=== PATIENT | male | born 1940 | race Caucasian/White ===

== ENCOUNTER → 2016-12-30 | Outpatient (CLI) | payer OTHER ==
[2016-12-30 16:36] LABS: BASO % 0.2 %; BASO ABS # 0.01 K/uL (0-0.2); COMPLETE YES; EOS % 1.6 %; HEMATOCRIT 45.1 % (42-52); IG% 0.6 %; LYMPH % 24.2 %; LYMPH ABS # 1.54 K/uL (1.2-3.4); MEAN CORPUSCULAR HGB CONC 33.7 g/dl (32-36); MEAN PLATELET VOLUME 9.3 fL (7.4-10.4); MONO % 7.2 %; NEUT % 66.2 %; PLATELET COUNT 270 K/uL (130-400); WHITE BLOOD COUNT 6.36 K/uL (4.8-10.8)
[2016-12-30 16:41] LABS: URINE APPEARANCE CLEAR (CLEAR); URINE BILIRUBIN NEG (NEG); URINE COLOR YELLOW; URINE EPITHELIAL CELL AUTO 0-5 /lpf (0-5); URINE NITRITE NEG (NEG); URINE SPECIFIC GRAVITY 1.015 (1.000-1.030); UROBILINOGEN NEG (NEG); ZZUR CULT IF INDIC CLEAN CATCH NO
[2016-12-30 16:45] LABS: MANUAL MICROSCOPIC REQUIRED? NO; REVIEW REQ? NO
[2016-12-30 16:48] LABS: ALT/SGPT 26 U/L (12-78); AST/SGOT 18 U/L (15-37); BLOOD UREA NITROGEN 16 mg/dl (7-18); BUN/CREATININE RATIO 17.7 (10-20); CALCIUM 8.7 mg/dl (8.5-10.1); CARBON DIOXIDE 27 mmol/L (21-32); CHLORIDE 107 mmol/L (98-107); CHOLESTEROL 247 mg/dl (0-200); CREATININE 0.93 mg/dl (0.60-1.40); GLUCOSE 86 mg/dl (70-99); POTASSIUM 3.8 mmol/L (3.5-5.1); SODIUM 143 mmol/L (136-145)
[2016-12-30 17:01] LABS: ALB/GLOB RATIO 1.2 (0.9-2); ALKALINE PHOSPHATASE 54 U/L (45-117); CHOLESTEROL/HDL RATIO 3.7; HDL CHOLESTEROL 67 mg/dl; LDL CHOLESTEROL CALCULATED 158 mg/dl; THYROID STIMULATING HORMONE 0.384 uIu/ml (0.300-4.500); TRIGLYCERIDES 112 mg/dl (0-150); VERY LOW DENSITY LIPOPROT CALC 22 mg/dl
== END | disposition home or self-care (01) ==
LOC: C.LABBFT 12:36
PROVIDERS: ATTEND Internal Medicine
DX: R97.20 Elevated prostate specific antigen [PSA] (principal); E78.5 Hyperlipidemia, unspecified

== ENCOUNTER → 2017-01-12 | Outpatient (CLI) | payer OTHER ==
[2017-01-12 17:46] LABS: BLOOD UREA NITROGEN 16 mg/dl (7-18); CALCIUM 8.9 mg/dl (8.5-10.1); CARBON DIOXIDE 28 mmol/L (21-32); CHLORIDE 108 mmol/L (98-107); GLUCOSE 93 mg/dl (70-99); POTASSIUM 3.9 mmol/L (3.5-5.1); SODIUM 143 mmol/L (136-145)
== END | disposition home or self-care (01) ==
LOC: C.LABBFT 15:20
PROVIDERS: ATTEND Physician Assistant Medical
DX: E78.5 Hyperlipidemia, unspecified (principal); I10 Essential (primary) hypertension

== ENCOUNTER → 2017-02-08 | Outpatient (CLI) | payer OTHER ==
--- NOTE | 2017-02-08 11:42 | DIAGNOSTIC IMAGING REPORT ---
RIGHT INGUINAL ULTRASOUND CLINICAL HISTORY: Right ankle soft tissue mass COMPARISON STUDY: No previous studies for comparison. FINDINGS: There is a large reducible right inguinal hernia which contains both fat and bowel. IMPRESSION: Large reducible fat and bowel containing right inguinal hernia. Electronically signed by: Ramos Ayon M.D. 02/08/2017 11:41 AM Dictated Date/Time: 02/08/2017 11:40 AM
== END | disposition home or self-care (01) ==
LOC: C.ULTR 11:16
PROVIDERS: ATTEND Physician Assistant Medical
DX: K40.90 Unilateral inguinal hernia, without obstruction or gangrene, not specified as recurrent (principal)

== ENCOUNTER 2018-05-08 21:00 | Emergency (ER) | payer OTHER ==
[~2018-05-08] VITALS: Ht 170.2 cm; Wt 67.1 kg
[2018-05-08 21:10] VITALS: TEMP 36.7; Ht 170.2 cm; Wt 67.1 kg
[2018-05-08 21:25] VITALS: O2SAT 94
--- NOTE | 2018-05-08 22:02 | EMERGENCY ROOM VISIT NOTE ---
History Report prepared by Shannon: Nancy Rai Under the Supervision of: Dr. Dash Harden M.D. First contact with patient: 21:21 Chief Complaint: CHEST INJURY Stated Complaint: CHEST PAIN, HIT IN CHEST WHILE WORKING History of Present Illness The patient is a 77 year old male who presents to the Emergency Room with complaints of constant, worsening chest pain beginning 6 days ago. He notes the pain is worsened by breathing and movement. 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 He states he fell to the ground and was unable to get to his feet for a few moments. He cyndi any LOC. The patient notes his pain has been worsening since that incident 6 days ago. 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 The patient denies any SOB, abdominal pain, or back pain. He notes he took 1 Advil yesterday , and 2 today, to no effect. The patient denies any blood thinner use. He notes a history of multiple broken ribs and other bones. Source of History: patient Onset: 6 days ago Position: chest Timing: constant, worsening Modifying Factors (Worsening): breathing, movement Modifying Factors (Relieving): other (not relieved by Advil) Associated Symptoms: No SOB, No abdominal pain, No back pain Review of Systems See HPI for pertinent positives and negatives. A total of ten systems were reviewed and were otherwise negative. Past Medical & Surgical Medical Problems: (1) High cholesterol (2) HTN (hypertension) Family History No pertinent family history stated. Social History Smoking Status: Former Smoker Smokeless Tobacco Use: No Marital Status: Occupation Status: retired Current/Historical Medications Scheduled Atorvastatin (Lipitor), 10 MG PO DAILY Fish Oil ([place]-3), 1 CAP PO DAILY Losartan Potassium (Cozaar), 25 MG PO DAILY Misc Natural Products (Urinozinc), 1 CAP PO DAILY Scheduled PRN Ibuprofen Tab (Advil), 400 MG PO UD PRN for Pain or Fever Allergies Coded Allergies: No Known Allergies (Unverified , 05/08/18) Physical Exam Vital Signs Date Time Temp Pulse Resp B/P (MAP) Pulse Ox O2 Delivery O2 Flow Rate FiO2 05/08/18 23:12 72 05/08/18 22:34 82 20 177/97 96 Room Air 05/08/18 21:25 94 05/08/18 21:10 36.7 87 20 187/92 94 Room Air Physical Exam GENERAL: Awake, alert, well-appearing, in no distress HENT: Normocephalic, atraumatic. Oropharynx unremarkable. EYES: Normal conjunctiva. Sclera non-icteric. NECK: Supple. No nuchal rigidity. RESPIRATORY: Clear to auscultation. No wheezes. Normal respiratory effort. CARDIAC: Normal rate. Normal rhythm. Extremities warm and well perfused. GI: Soft, non-distended. No tenderness to palpation. No rebound or guarding. RECTAL: Deferred. MUSCULOSKELETAL: Atraumatic. Chest examination reveals central sternal chest tenderness to palpation without contusion or crepitus. LOWER EXTREMITIES: Calves are equal size bilaterally and non-tender. No edema NEURO: Normal sensorium. No sensory or motor deficits noted. No facial droop. SKIN: Warm and dry. No rash or jaundice noted. Medical Decision & Procedures ER Provider Diagnostic Interpretation: Radiology results as stated below per my review and radiologist interpretation: (CHEST) THORAX WITHOUT CT DOSE: 239.91 mGy.cm CLINICAL HISTORY: 77 years-old Male with chest pain, struck in chest 6 days ago, sternum. Acute midsternal chest pain with recent chest trauma TECHNIQUE: Multiaxial CT images of the chest were performed without contrast. A dose lowering technique was utilized adhering to the principles of ALARA. COMPARISON: None. FINDINGS: Thyroid appears enlarged without focal nodule identified. Mild multichamber cardiac enlargement with coronary arterial calcifications. Calcifications of the aortic annulus are also present. Mild calcification of the thoracic aorta without aneurysm identified. Tortuosity of the descending thoracic aorta. Unopacified pulmonary artery is unremarkable. Calcified lower right hilar lymph nodes. No pathologically enlarged lymph nodes by CT size criteria. Moderate left hemidiaphragm elevation. Subsegmental groundglass and consolidative opacities of the lung bases, left greater than right suggest atelectasis/scarring. Calcified granulomata about the medial basal segment right lower lobe. No suspicious pulmonary nodules identified. No pneumothorax or pleural effusion. The central airways appear to be patent. Calcified granulomata about the spleen. Soft tissue attenuating 2.2 x 1.6 cm exophytic lesion of the superior pole left kidney demonstrates mild peripheral calcification along its superior margin. Mild nonspecific left perinephric stranding. Colonic diverticulosis. Hypodense lesions of the liver measuring up to 8.0 cm suggest hepatic cysts. Soft tissues are unremarkable. Subacute to chronic appearing fracture of the posterior left 10th rib. There is mild increased sclerosis about the anterior left fourth rib, image 126 series 4 without discrete fracture line identified. Healed fracture of the lateral left ninth rib. Multilevel spondylitic spurring of the spine. There is mild cortical regularity about the mid sternum seen best on the sagittal images suggesting acute nondisplaced sternal fracture with minimal presternal soft tissue stranding. IMPRESSION: 1. Mild cortical irregularity about the mid sternal body seen best on the coronal reformatted images suggests acute nondisplaced fracture. Minimal associated soft tissue swelling. 2. Subacute to chronic appearing fracture of the left posterior 10th rib. 3. No acute intrathoracic abnormality identified. No pneumothorax. 4. Cardiomegaly. 5. Prior granulomatous disease. 6. Moderate left hemidiaphragmatic elevation with subsegmental bibasilar atelectasis/scarring. 7. Additional findings as above. Electronically signed by: Patrick Gordon M.D. 05/08/2018 10:15 PM Dictated Date/Time: 05/08/2018 10:05 PM Laboratory Results 05/08/18 22:43 Red Blood Count 4.71, Mean Corpuscular Volume 93.2, Mean Corpuscular Hemoglobin 32.1, Mean Corpuscular Hemoglobin Concent 34.4, Mean Platelet Volume 9.0, Neutrophils (%) (Auto) 67.7, Lymphocytes (%) (Auto) 16.8, Monocytes (%) (Auto) 11.9, Eosinophils (%) (Auto) 2.6, Basophils (%) (Auto) 0.4, Neutrophils # (Auto ) 4.73, Lymphocytes # (Auto) 1.17, Monocytes # (Auto) 0.83, Eosinophils # (Auto ) 0.18, Basophils # (Auto) 0.03 05/08/18 22:43 Test 05/08/18 22:43 White Blood Count 6.98 K/uL (4.8-10.8) Red Blood Count 4.71 M/uL (4.7-6.1) Hemoglobin 15.1 g/dL (14.0-18.0) Hematocrit 43.9 % (42-52) Mean Corpuscular Volume 93.2 fL (80-100) Mean Corpuscular Hemoglobin 32.1 pg (25-34) Mean Corpuscular Hemoglobin Concent 34.4 g/dl (32-36) Platelet Count 219 K/uL (130-400) Mean Platelet Volume 9.0 fL (7.4-10.4) Neutrophils (%) (Auto) 67.7 % Lymphocytes (%) (Auto) 16.8 % Monocytes (%) (Auto) 11.9 % Eosinophils (%) (Auto) 2.6 % Basophils (%) (Auto) 0.4 % Neutrophils # (Auto) 4.73 K/uL (1.4-6.5) Lymphocytes # (Auto) 1.17 K/uL (1.2-3.4) Monocytes # (Auto) 0.83 K/uL (0.11-0.59) Eosinophils # (Auto) 0.18 K/uL (0-0.5) Basophils # (Auto) 0.03 K/uL (0-0.2) RDW Standard Deviation 45.7 fL (36.4-46.3) RDW Coefficient of Variation 13.3 % (11.5-14.5) Immature Granulocyte % (Auto) 0.6 % Immature Granulocyte # (Auto) 0.04 K/uL (0.00-0.02) Anion Gap 8.0 mmol/L (3-11) Est Creatinine Clear Calc Drug Dose 78.9 ml/min Estimated GFR () 103.4 Estimated GFR (Non- 89.2 BUN/Creatinine Ratio 21.0 (10-20) Calcium Level 8.6 mg/dl (8.5-10.1) Total Bilirubin 0.4 mg/dl (0.2-1) Direct Bilirubin 0.1 mg/dl (0-0.2) Aspartate Amino Transf (AST/SGOT) 23 U/L (15-37) Alanine Aminotransferase (ALT/SGPT) 22 U/L (12-78) Alkaline Phosphatase 64 U/L (45-117) Troponin I < 0.015 ng/ml (0-0.045) Total Protein 6.8 gm/dl (6.4-8.2) Albumin 3.8 gm/dl (3.4-5.0) Lipase 276 U/L (73-393) Laboratory results reviewed by me ECG Per My Interpretation Indication: chest pain Rate (beats per minute): 87 Rhythm: normal sinus Findings: other (normal axis. normal intervals. no ST segment elevation.) Comparison ECG Date: no prior available ED Course 2122: The patient was evaluated in room A12B. A complete history and physical exam was performed. 2238: I reevaluated and updated the patient. 2320: I reevaluated the patient. Discussed results and discharge instructions: he verbalized understanding and agreement. The patient is ready for discharge. Medical Decision Etiologies such as cardiac ischemia, aortic dissection, pulmonary embolism, pneumonia, pneumothorax, musculoskeletal, infections, pericarditis, myocarditis , esophageal rupture, gastrointestinal, as well as others were entertained. Patient presents 6 days after striking his test accidentally while drilling for concrete wall. Some pain since then worse with movement. Did some more upper body strength work and experience more pain today. Advil has not been helping much. EKG is unchanged. Troponin is negative. Doubt this represents pneumonia or PE. Doubt ACS/dissection. There is a nondisplaced sternal fracture likely etiology of the pain. No other rib fractures. EKG and troponin do not show any evidence of blunt cardiac injury. Feel the patient is stable for discharge with pain control. Had cipriano discussion with him regarding pain control options and he will utilize [id number] Tylenol & Motrin and not with prescription medication. Discussed return criteria. Feel he is stable for discharge. Medication Reconcilliation Current Medication List: was personally reviewed by me Blood Pressure Screening Patient's blood pressure: Elevated blood pressure Blood pressure disposition: Referred to PCP Impression Primary Impression: Sternal fracture Scribe Attestation The scribe's documentation has been prepared under my direction and personally reviewed by me in its entirety. I confirm that the note above accurately reflects all work, treatment, procedures, and medical decision making performed by me. Departure Information Dispostion Home / Self-Care Referrals No Doctor, Assigned (PCP) Forms IMPORTANT VISIT INFORMATION Patient Instructions My [facility] Additional Instructions Continue to utilize Tylenol and Motrin for pain control for your sternal fracture. Please avoid any new injury to this area. If you experience any new or worrisome symptoms please at any time return here for reevaluation. Would recommend follow-up with your regular doctor in the next week; would also recommend discussing your blood pressure control as it is elevated here. Problem Qualifiers Primary Impression: Sternal fracture Encounter type: initial encounter Sternal location: body of sternum Fracture type: closed Qualified Codes: S22.22XA - Fracture of body of sternum , initial encounter for closed fracture
[2018-05-08] MEDS ORDERED: ATOR10TA82 PO (22:14)
[2018-05-08] MEDS ORDERED: OMEG10007 PO (22:14)
[2018-05-08] MEDS ORDERED: IBUP-103 PO (22:14)
[2018-05-08] MEDS ORDERED: LOSA25TA18 PO (22:14)
[2018-05-08] MEDS ORDERED: MISC1CAP65 PO (22:14)
--- NOTE | 2018-05-08 22:16 | DIAGNOSTIC IMAGING REPORT ---
(CHEST) THORAX WITHOUT CT DOSE: 239.91 mGy.cm CLINICAL HISTORY: 77 years-old Male with chest pain, struck in chest 6 days ago, sternum. Acute midsternal chest pain with recent chest trauma TECHNIQUE: Multiaxial CT images of the chest were performed without contrast. A dose lowering technique was utilized adhering to the principles of ALARA. COMPARISON: None. FINDINGS: Thyroid appears enlarged without focal nodule identified. Mild multichamber cardiac enlargement with coronary arterial calcifications. Calcifications of the aortic annulus are also present. Mild calcification of the thoracic aorta without aneurysm identified. Tortuosity of the descending thoracic aorta. Unopacified pulmonary artery is unremarkable. Calcified lower right hilar lymph nodes. No pathologically enlarged lymph nodes by CT size criteria. Moderate left hemidiaphragm elevation. Subsegmental groundglass and consolidative opacities of the lung bases, left greater than right suggest atelectasis/scarring. Calcified granulomata about the medial basal segment right lower lobe. No suspicious pulmonary nodules identified. No pneumothorax or pleural effusion. The central airways appear to be patent. Calcified granulomata about the spleen. Soft tissue attenuating 2.2 x 1.6 cm exophytic lesion of the superior pole left kidney demonstrates mild peripheral calcification along its superior margin. Mild nonspecific left perinephric stranding. Colonic diverticulosis. Hypodense lesions of the liver measuring up to 8.0 cm suggest hepatic cysts. Soft tissues are unremarkable. Subacute to chronic appearing fracture of the posterior left 10th rib. There is mild increased sclerosis about the anterior left fourth rib, image 126 series 4 without discrete fracture line identified. Healed fracture of the lateral left ninth rib. Multilevel spondylitic spurring of the spine. There is mild cortical regularity about the mid sternum seen best on the sagittal images suggesting acute nondisplaced sternal fracture with minimal presternal soft tissue stranding. IMPRESSION: 1. Mild cortical irregularity about the mid sternal body seen best on the coronal reformatted images suggests acute nondisplaced fracture. Minimal associated soft tissue swelling. 2. Subacute to chronic appearing fracture of the left posterior 10th rib. 3. No acute intrathoracic abnormality identified. No pneumothorax. 4. Cardiomegaly. 5. Prior granulomatous disease. 6. Moderate left hemidiaphragmatic elevation with subsegmental bibasilar atelectasis/scarring. 7. Additional findings as above. Electronically signed by: Patrick Gordon M.D. 05/08/2018 10:15 PM Dictated Date/Time: 05/08/2018 10:05 PM
[2018-05-08 22:57] LABS: BASO % 0.4 %; BASO ABS # 0.03 K/uL (0-0.2); EOS % 2.6 %; EOS ABS # 0.18 K/uL (0-0.5); HEMATOCRIT 43.9 % (42-52); HEMOGLOBIN 15.1 g/dL (14.0-18.0); IG# 0.04 K/uL (0.00-0.02); LYMPH % 16.8 %; LYMPH ABS # 1.17 K/uL (1.2-3.4); MEAN CELL VOLUME 93.2 fL (80-100); MEAN CORPUSCULAR HEMOGLOBIN 32.1 pg (25-34); MEAN CORPUSCULAR HGB CONC 34.4 g/dl (32-36); MONO % 11.9 %; MONO ABS # 0.83 K/uL (0.11-0.59); NEUT % 67.7 %; NEUT ABS # 4.73 K/uL (1.4-6.5); PLATELET COUNT 219 K/uL (130-400); RED CELL DISTRIBUTION WIDTH CV 13.3 % (11.5-14.5); RED CELL DISTRIBUTION WIDTH SD 45.7 fL (36.4-46.3); WHITE BLOOD COUNT 6.98 K/uL (4.8-10.8)
[2018-05-08 23:18] LABS: ALBUMIN 3.8 gm/dl (3.4-5.0); ALKALINE PHOSPHATASE 64 U/L (45-117); ALT/SGPT 22 U/L (12-78); AST/SGOT 23 U/L (15-37); BLOOD UREA NITROGEN 15 mg/dl (7-18); CALCIUM 8.6 mg/dl (8.5-10.1); CARBON DIOXIDE 24 mmol/L (21-32); CREATININE 0.71 mg/dl (0.60-1.40); GLUCOSE 108 mg/dl (70-99); LIPASE 276 U/L (73-393); POTASSIUM 3.6 mmol/L (3.5-5.1); SODIUM 141 mmol/L (136-145); TOTAL PROTEIN 6.8 gm/dl (6.4-8.2)
[2018-05-08 23:50] VITALS: BP 170/100; PULSE 70; O2SAT 94
== END 2018-05-08 23:50 | disposition home or self-care (01) ==
LOC: C.EDB 21:01 → C.EDA 23:50
DX: S22.22XA Fracture of body of sternum, initial encounter for closed fracture (principal); E78.00 Pure hypercholesterolemia, unspecified; I10 Essential (primary) hypertension; Z79.899 Other long term (current) drug therapy; Z87.828 Personal history of other (healed) physical injury and trauma; Z87.891 Personal history of nicotine dependence; W22.8XXA Striking against or struck by other objects, initial encounter; Y92.89 Other specified places as the place of occurrence of the external cause; Y99.2 Volunteer activity